=== PATIENT | male | born 1945 | race Two or more races ===

== ENCOUNTER → 2017-03-03 | Outpatient (REF) | payer MEDICARE | LOC: M SMT 16:56 | PROVIDERS: ATTEND Nurse Practitioner Women's Health | DX: R82.90 Unspecified abnormal findings in urine (principal) | CPT/HCPCS: 51798; 81001; 87088; 87186; G0463 ==

== ENCOUNTER → 2017-07-16 | Outpatient (REF) | payer MEDICARE | LOC: M LAB REF 17:08 | PROVIDERS: ATTEND Internal Medicine Nephrology | DX: N39.0 Urinary tract infection, site not specified (principal) ==

== ENCOUNTER → 2017-08-05 | Outpatient (REF) | payer MEDICARE ==
[~2017-08-05] MED LIST: ALLO100T PO; AMBI10TA PO; ASPI81TAEC PO; CARV12.5 PO; CARV25TA PO; FENO1CAP2 PO; FENO35TA PO; FLON1SPR; GABA-282 PO; K-TA10TA2 PO; PRAV80TA2 PO; ROCA0.25 PO; TORS20TA2 PO; WARF-18 PO; WARF4TAB51 PO; ZYLO300T4 PO
== END ==
LOC: M SMT 17:08
PROVIDERS: ATTEND Nurse Practitioner Women's Health
DX: N39.0 Urinary tract infection, site not specified (principal)
CPT/HCPCS: 51798; 81001; 87088; 87186; G0463

== ENCOUNTER → 2017-08-19 | Outpatient (REF) | payer MEDICARE | LOC: M SFHCCAPE 16:29 | PROVIDERS: ATTEND Physician Assistant | DX: L03.115 Cellulitis of right lower limb (principal) ==

== ENCOUNTER 2017-08-20 17:58 | Inpatient (IN) | payer MEDICARE ==
[~2017-08-20] VITALS: Ht 188 cm; Wt 139.5 kg
[2017-08-20] MEDS ORDERED: AMBI10TA PO (18:23)
[2017-08-20] MEDS ORDERED: CARV12.5 PO (18:23)
[2017-08-20] MEDS ORDERED: ZYLO300T4 PO (18:23)
[2017-08-20] MEDS ORDERED: PRAV80TA2 PO (18:23)
[2017-08-20] MEDS ORDERED: ROCA0.25 PO (18:23)
[2017-08-20] MEDS ORDERED: GABA-282 PO ×2 (18:23→21:56)
[2017-08-20] MEDS ORDERED: FENO35TA PO (18:23)
[2017-08-20] MEDS ORDERED: K-TA10TA2 PO (18:23)
[2017-08-20] MEDS ORDERED: WARF4TAB51 PO (18:23)
[2017-08-20] MEDS ORDERED: TORS20TA2 PO (18:23)
[2017-08-20 19:22] LABS: BASO % 0.2 % (0.0-1.0); EOS # 0.1 10^3/uL (0.0-0.50); EOS % 0.6 % (0.0-3.0); IMMATURE GRANULOCYTE % 0.8 % (0-0); LYMPH # 0.8 10^3/uL (1.5-4.5); LYMPH % 6.3 % (24.0-44.0); MEAN CORPUSCULAR HEMOGLOBIN 24.4 pg (27.0-33.0); MEAN CORPUSCULAR HGB CONC 29.8 g/dl (32.0-36.5); MEAN CORPUSCULAR VOLUME 81.9 fl (80.0-96.0); MONO % 8.1 % (0.0-5.0); NEUTROPHILS # 10.8 10^3/uL (1.8-7.7); PLATELET COUNT, AUTOMATED 212 10^3/uL (150-450); RED CELL DISTRIBUTION WIDTH 20.7 % (11.5-14.5); WHITE BLOOD COUNT 12.8 10^3/uL (4.0-10.0)
[2017-08-20 19:44] LABS: INR 2.56
--- NOTE | 2017-08-20 19:50 | REP ---
HISTORY: Dyspnea. COMPARISON: 09/03/2015 The technique utilized in obtaining the radiograph has magnified the cardiac silhouette and accentuated the interstitial markings. There is global cardiomegaly. There is pulmonary vascular redistribution and a haziness seen throughout the pulmonary vascularity. There are no patchy opacities or pleural effusions. IMPRESSION: CHF. Signed by Marcelo High DO 08/21/2017 02:10 P
[2017-08-20 19:52] LABS: CALCIUM LEVEL 8.7 MG/DL (8.8-10.2); CREATININE FOR GFR 2.9 MG/DL (0.70-1.30); GLOMERULAR FILTRATION RATE 22.8 (>42); POTASSIUM SERUM 3.8 MEQ/L (3.5-5.1)
[2017-08-20 19:59] LABS: ALBUMIN 3.2 GM/DL (3.2-5.2); ALBUMIN/GLOBULIN RATIO 0.91 (1.00-1.93); BILIRUBIN,TOTAL 2.4 MG/DL (0.2-1.0); TOTAL PROTEIN 6.7 GM/DL (6.4-8.2)
--- NOTE | 2017-08-20 20:10 | REPUSA ---
CLINICAL HISTORY: Shortness of breath. TECHNIQUE: Multiple axial, coronal, sagittal CT images were obtained through chest without IV contra st material. COMMENTS: There is no evidence of pleural or parenchymal-based mass. Small right pleural effusion and no left pleural effusion is present. There is no evidence of hilar or mediastinal lymphadenopathy. The hear t is severely enlarged. Pulmonary venous congestive changes are present. Note is made of diffusely increased interstitial lungs markings with peripheral and bibasilar predomi nance compatible with pulmonary fibrosis. Few calcified nodules are present in the right lower lobe, the largest measures 4 mm. Mild scattered upper lobe predominant centrilobular emphysema is seen. Several small calcified granulomas are present in the left lower lobe measuring up to 2.5 mm. The visualized portions of the liver are of uniform attenuation without mass or defect. There is no intra or extrahepatic biliary ductal dilatation. The spleen is unremarkable. The visualized pancrea s is of normal contour and attenuation characteristics. There is no evidence of adrenal mass. The v isualized portions of the kidneys present no abnormalities. The bony structures are free of lytic or blastic lesions. Multilevel degenerative changes are seen i nvolving the thoracic spine. Scattered calcifications are seen involving the aorta and visualized james or branches compatible with atherosclerosis. IMPRESSION: 1. Cardiomegaly. 2. CHF. 3. Right pleural effusion. 4. Sequelae of prior granulomatous disease. 5. Evidence of pulmonary fibrosis. 6. Mild scattered emphysema.
--- NOTE | 2017-08-20 20:21 | ECGEPIP ---
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
[2017-08-20] MEDS ORDERED: FUROSEMIDE 40 MG/4 ML VIAL (J1940) IV ONE (20:45)
[2017-08-20] MEDS: PRAVASTATIN 20 MG TAB PO SCH (21:00)
[2017-08-20] MEDS ORDERED: WARF-18 PO (21:56)
[2017-08-20] MEDS ORDERED: ASPI81TAEC PO (21:56)
[2017-08-20] MEDS ORDERED: CARV25TA PO (21:56)
[2017-08-20] MEDS ORDERED: ALLO100T PO (21:56)
[2017-08-20] MEDS ORDERED: FENO1CAP2 PO (21:56)
[2017-08-20] MEDS ORDERED: FLON1SPR (21:56)
[2017-08-20] MEDS ORDERED: ACETAMINOPHEN TAB 650MG DOSE (2X325MG) PO PRN (22:00)
[2017-08-20] MEDS ORDERED: GABAPENTIN 300 MG CAP PO PRN (22:15)
[2017-08-20] MEDS ORDERED: FLUTICASONE PROP 0.05% NASAL SPRAY 16 GM (FLONASE) PRN (22:15)
[2017-08-20] MEDS: CARVedilol 12.5 MG TAB PO SCH (22:42)
[2017-08-20] MEDS: zolPIDEM TARTRATE 5 MG TAB PO SCH (22:42)
[2017-08-20] MEDS: ASPIRIN 81 MG ENTERIC TAB PO SCH (22:43)
[2017-08-20] MEDS: GABAPENTIN 300 MG CAP PO SCH (22:43)
--- NOTE | 2017-08-20 23:36 | HPE ---
DATE OF ADMISSION: 08/20/2017 ATTENDING PHYSICIAN: Dr. Candido Higgins PHARMACEUTICAL OFFICER: Dr. Perez DOUGH BRAKER: Dr. Poole CHIEF COMPLAINT: Worsening swelling of bilateral lower extremities. HISTORY OF THE PRESENT ILLNESS: The patient is a 72-year-old white male with multiple chronic medical conditions, including congestive heart failure (CHF) and chronic kidney disease stage IV, presented to the emergency room (ER) for evaluation of above complaints. The history is provided by himself; however, he is a poor historian. 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 Perez. He was taking torsemide 40 mg twice a day at home. Also, he has chronic kidney disease stage IV and he followed up with Dr. Poole. He stated recently he was treated with 10 days antibiotics, but he could not remember the name of antibiotic ordered for possible urinary tract infection by urologist. In the last couple of days, he said he has more swelling in his bilateral lower extremities, particularly there is some fluid that came out from his right lower extremity and that is why he went to urgent care and then transferred here to the ER for further evaluation. In the ER, he was found to have fluid overload, and he was given intravenous (IV) Lasix in the ER. Meanwhile, medicine service called for admission. Otherwise, no other complaints. REVIEW OF SYSTEMS: Denies fever. No chills. No headache. No blurred vision. No shortness of breath. No coughing. No chest pain. No abdominal pain. No diarrhea. No constipation. No dysuria. No weakness in the arms or lower extremities but general weakness. All other systems were reviewed but negative. PAST MEDICAL HISTORY: 1. Hypertension. 2. Chronic kidney disease stage IV. 3. Chronic atrial fibrillation, on Coumadin. 4. Congestive heart failure, ejection fraction (EF) is around 35%. 5. Type 2 diabetes, which is diet controlled. PAST SURGICAL HISTORY: Stone was removed from his bladder and prostate cancer with radiation therapy. ALLERGIES: No known drug allergies. SOCIAL HISTORY: He has remote tobacco use, quit 40 years. No alcohol abuse. No illicit drug abuse. He is living with . He is a F[employer]. FAMILY HISTORY: Positive for gastric cancer. MEDICATIONS: Reviewed including: - torsemide 40 mg twice a day - Coumadin 2 mg daily - potassium chloride 10 mEq daily - Neurontin 300 mg three times a day - pravastatin 80 mg by mouth daily - Coreg 12.5 mg by mouth daily - allopurinol 300 mg by mouth daily PHYSICAL EXAMINATION: VITAL SIGNS: Temperature 97.5, heart rate is 113, respirations 22, blood pressure 110/57, oxygen saturation is 95% on 2 liters of oxygen. GENERAL: He is awake, alert, oriented times three. He is not in acute distress. HEENT: Atraumatic. Pupils equal, round, reactive to light. Extraocular muscles intact. No jaundice. Ears, nose and throat are normal. NECK: No jugular venous distention (JVD), no bruits. LUNGS: Clear. No wheezing, no crackles. HEART; S1, S2, mild tachycardia, irregular but no murmur. ABDOMEN: Soft. Bowel sounds positive, nontender. LOWER EXTREMITIES: He has +2 edema in his bilateral lower extremities. NEUROLOGIC: Nonfocal. SKIN: No rash. PSYCHOLOGIC: No acute psychosis. DIAGNOSTIC AND LAB STUDIES: Include the following: CBC and differential showed WBC 12.8, hemoglobin and hematocrit 12 over 40, platelets 212. Sodium 139, potassium 3.8, chloride 104, bicarbonate 25, BUN 100, creatinine 2.9, glucose 107, bilirubin is 2.4 but liver enzymes normal. Troponin negative. BNP is up to 5297 and INR was 2.5. Chest CT as well as chest x-ray were reviewed, not significant. IMPRESSION: 1. Acute on chronic systolic congestive heart failure. 2. Chronic kidney disease stage IV. 3. Chronic atrial fibrillation. 4. Type 2 diabetes. 5. Hypertension. PLAN: He will be admitted to the progressive care unit (PCU). It seems like he has fluid overload, so I will treat him with IV Lasix 60 mg IV twice a day. Will closely monitor his electrolytes as well as his kidney function. I will schedule a 2D echocardiogram and will consult Dr. Perez. He has abnormal urinalysis, but I do not think he has a urinary tract infection, probably related to his prostate cancer plus he was treated recently with antibiotics. Due to mildly increased creatinine from his baseline, I will schedule a renal ultrasound to rule out any obstruction. He is on Coumadin for atrial fibrillation, which is therapeutic, so he does not need actual deep vein thrombosis (DVT) prophylaxis. [facility]
[2017-08-21 06:45] LABS: INR 2.72
[2017-08-21 07:04] LABS: CALCIUM LEVEL 8.5 MG/DL (8.8-10.2); CREATININE FOR GFR 2.77 MG/DL (0.70-1.30); MAGNESIUM LEVEL 2.2 MG/DL (1.8-2.4); POTASSIUM SERUM 3.6 MEQ/L (3.5-5.1)
[2017-08-21 07:13] LABS: BASO % 0.4 % (0.0-1.0); EOS # 0.2 10^3/uL (0.0-0.50); EOS % 2.2 % (0.0-3.0); IMMATURE GRANULOCYTE % 0.6 % (0-0); LYMPH # 0.9 10^3/uL (1.5-4.5); MEAN CORPUSCULAR HEMOGLOBIN 24.7 pg (27.0-33.0); MEAN CORPUSCULAR HGB CONC 30.2 g/dl (32.0-36.5); MEAN CORPUSCULAR VOLUME 81.8 fl (80.0-96.0); MONO % 9.2 % (0.0-5.0); NEUTROPHILS # 8.7 10^3/uL (1.8-7.7); NEUTROPHILS % 79.6 % (36.0-66.0); PLATELET COUNT, AUTOMATED 214 10^3/uL (150-450); RED CELL DISTRIBUTION WIDTH 20.6 % (11.5-14.5); WHITE BLOOD COUNT 10.9 10^3/uL (4.0-10.0)
--- NOTE | 2017-08-21 07:31 | REP ---
Renal ultrasound: The right kidney measures 13.7 by 6.6 x 7.1 cm. The left kidney measures 2.7 by 4.8 by 5.7 cm. Renal cortical echogenicity is normal bilaterally. There is no hydronephrosis on the right on the left. There are multiple left renal cysts, largest measuring up to 4.1 cm. There are no right renal cysts. No solid masses. There are no calculi. Bladder ultrasound: The bladder is distended with 490 ml of fluid. No bladder wall polyps or masses are identified. The bladder is otherwise unremarkable. Impression: The kidneys at least 2 cm for in length and the right kidney. There are multiple left renal cysts. Otherwise, negative renal ultrasound. No Signed by Nader Etienne MD 08/21/2017 07:23 A
[2017-08-21] MEDS: CARVedilol 12.5 MG TAB PO SCH ×2 (09:00→20:29)
[2017-08-21] MEDS: FUROSEMIDE 100 MG/10 ML VIAL (J1940) IV SCH ×3 (09:36→21:00)
[2017-08-21] MEDS: CALCITRIOL 0.25 MCG CAP (S0169) PO SCH (09:36)
[2017-08-21] MEDS: SENOKOT S TAB PO SCH ×2 (09:37→20:30)
--- NOTE | 2017-08-21 16:01 | IPN ---
DATE: 08/21/2017 Patient seen and examined. Admitted overnight. Reported respirations much improved. Bilateral lower extremity swelling also much improved. With right lower extremity there is a ruptured blister with drainage. As per patient, has been going on for the past 5-6 days. Denies any chest pain, pressure, or discomfort. Denies any fevers or chills. No sick contacts. Lives at home with his . VITAL SIGNS: Temperature 98.3, pulse 76, respirations 18, blood pressure 138/63, pulse oximetry 96% on room air. LABORATORY DATA: WBC 10.9, hemoglobin and hematocrit 11.5/38.1, platelets 214. Chemistry: Sodium 142, potassium 3.6, chloride 105, bicarbonate 25, BUN 92, creatinine 2.77. PHYSICAL EXAMINATION: GENERAL: Patient alert and oriented times three, obese, in no acute distress. HEENT: Normocephalic, atraumatic. PULMONARY: Bilateral clear to auscultation. No wheezing, rales, or rhonchi. CARDIAC: 2/6 systolic murmur, regular, S1, S2. ABDOMEN: Soft, nontender, obese. EXTREMITIES: 1+ bilateral lower extremity edema, with venous stasis skin changes, right lower extremity, around the arias area with an ulcer with skin breakdown with purulent drainage. ASSESSMENT AND PLAN: This is a 72-year-old male patient with underlying medical history of congestive heart failure (CHF), with ejection fraction of 35%, chronic kidney disease (CKD) stage IV, baseline creatinine 2.6, chronic atrial fibrillation, on Coumadin, type 2 diabetes, diet controlled, hypertension, presented to the emergency room with worsening lower extremity swelling and also ulcer with purulent drainage. 1. Right lower extremity venous stasis ulcers. Case discussed with Dr. Greco. Physical therapy (PT), wound care has been consulted. Recommending venous ultrasound, standing, as per Dr. Greco with Vashe and Optifoam dressing daily and leg elevation. Continue diuresis as below. Followup with Dr. Greco as outpatient. Will make appointment for the patient upon discharge. 2. Bilateral lower extremity swelling, likely secondary to congestive heart failure (CHF) exacerbation with systolic dysfunction, ejection fraction (EF) of 35%. Diuresis. Cardiac enzymes. Telemetry monitoring. Followup kidney function. Dr. Perez has been consulted. Strict intake and output, daily weight. Continue statin, aspirin. 3. Atrial fibrillation. Continue beta blockers. Anticoagulation with Coumadin. Followup INR. 4. Dyslipidemia. Continue statin. 5. Diabetes. Diet controlled. Followup glucose. 6. Peripheral neuropathy. Continue Neurontin. 7. Hypertension. Monitor blood pressure. Continue Lasix and Coreg, adjust as needed. Followup electrolytes. 8. Deep venous thrombosis (DVT) prophylaxis. Patient on Coumadin for atrial fibrillation with therapeutic INR. DISPOSITION: Pending clinical improvement, wound care, and a cardiology consultation. Echocardiogram has also been ordered. Need outpatient followup with Dr. Greco.
[2017-08-21 16:05] VITALS: BP 102/62
--- NOTE | 2017-08-21 16:51 | REP ---
BILATERAL LOWER EXTREMITY DUPLEX DOPPLER VENOUS ULTRASOUND WITH EVALUATION FOR VENOUS REFLUX: Real-time compression and duplex Doppler interrogation of bilateral lower extremity deep venous systems is performed. Bilaterally, common femoral, superficial femoral and popliteal veins are fully compressible with transducer pressure and demonstrate normal spontaneous and phasic flow without evidence of deep venous thrombosis. There is focal dilatation of greater saphenous vein in the upper thigh as well as in the mid thigh on the left. Evaluation for venous reflux on the right demonstrates reflux in the common femoral vein. There is an anterior accessory greater saphenous vein present with reflux. There is no reflux in the proximal to mid greater saphenous vein which measures 6 and 7 mm in AP dimension respectively. There is reflux in the greater saphenous vein at the level of the knee with a duration of 3.6 seconds, AP diameter of that vessel is 6 mm. There is no reflux in any portion of the superficial femoral vein, popliteal vein or lesser saphenous vein which measures 4 mm. Anterior accessory greater saphenous vein communicates with the greater saphenous vein at the distal thigh. On the left, there is reflux in the common femoral vein. There is no evidence of an anterior accessory greater saphenous vein. There is reflux in the greater saphenous vein at the saphenofemoral junction with a duration of 2.1 seconds, AP diameter 12 mm. There is reflux in the greater saphenous vein at the midthigh with a duration of 2.7 seconds, AP diameter 9 mm, and there is reflux n the greater saphenous vein at the level of the knee with a duration of 2.5 seconds, AP diameter 11 mm. There is no reflux in any portion of the superficial femoral vein, popliteal vein or lesser saphenous vein. Signed by Nader Gamez MD 08/21/2017 05:04 P
[2017-08-21] MEDS: WARFARIN SOD 2.5 MG TAB PO SCH (17:52)
[2017-08-21 18:00] VITALS: BP 101/59
[2017-08-21] MEDS: zolPIDEM TARTRATE 5 MG TAB PO SCH (20:28)
[2017-08-21] MEDS: ASPIRIN 81 MG ENTERIC TAB PO SCH (20:29)
[2017-08-21] MEDS: GABAPENTIN 300 MG CAP PO SCH (20:29)
[2017-08-21] MEDS: PRAVASTATIN 20 MG TAB PO SCH (20:30)
[2017-08-21 22:00] VITALS: BP 106/63
[2017-08-22 02:00] VITALS: BP 95/54
--- NOTE | 2017-08-22 02:20 | CR ---
DATE OF CONSULTATION: 08/21/2017 REFERRING PHYSICIAN: Dr. Grande. REASON FOR CONSULTATION: Acute on chronic heart failure with preserved ejection fraction. Mr. Jose Hurtado is a pleasant 72-year-old man with coronary artery disease, prior silent old myocardial infarct, chronic atrial fibrillation, previous ischemic cardiomyopathy and now chronic systolic heart failure with preserved ejection fraction, systemic hypertension, abnormal ECG, frequent PVCs, hyperlipidemia, chronic kidney disease stage IV, nephrolithiasis, iron deficiency anemia, type 2 diabetes, obstructive sleep apnea (continuous positive airway pressure (CPAP) intolerant), and obesity. Patient presented to the hospital for admission yesterday (08/20/2017) after being seen by his primary care provider earlier that day when he was noted to have bilateral edema in both legs, venous stasis ulcer that was open and draining and a severely elevated brain natruretic peptide level. Patient reports he has had progressive buildup of edema in both legs for the past 2 months and also the past 2 months has had progressive worsening of exertional dyspnea to the point of exertional dyspnea walking around his garage. No orthopnea or paroxysmal nocturnal dyspnea (PND). No chest, neck, jaw or upper extremity pain, pressure, tightness or squeezing with or without exertion. No presyncope or syncope. No palpitations. No embolic events. No intermittent claudication. I shall summarize additional parts of his prior cardiac history. He was first discovered to have evidence of a sign of heart attack about 6 or 7 years ago. He subsequently underwent further evaluation with cardiac catheterization at [facility] in [place] and he was told he had " heart muscle." No percutaneous coronary intervention was indicated at that time. A stress echocardiogram from [facility] in [place], [place] 09/24/2002, reported poor cardiopulmonary fitness for age. Exercise induced regional wall motion abnormalities consistent with multivessel coronary artery disease (CAD). Resting left ventricular ejection fraction (LVEF) 50-55%. Moderate tricuspid regurgitation, estimated pulmonary systolic pressure 54 mmHg. No regional wall motion abnormalities at rest, but with exercise stress there was hypokinesis of the inferior basal segment, hypokinesis of the anterolateral wall and hypokinesis involving the mid and distal anteroseptal region. A diagnostic heart catheterization was recommended at that time. MUGA scan 01/03/2016 showed LVEF 46.4%. Akinesis of inferior basal region of the left ventricle with normal wall motion elsewhere. Mild reduction overall LV systolic function. Normal right ventricle systolic function. Holter monitor 11/09/2015, at which time patient was on carvedilol 25 mg twice a day, showed atrial fibrillation throughout with heart rate 39-82 beats per minute (BPM) with average heart rate of 60 BPM. Very frequent PVCs 27,556 (29.1%) including frequent runs with rates from 38-132 BPM and ranging in duration from 4-6 beats. No symptoms in the Holter diary. Echocardiogram Doppler 03/15/2015 from [facility] reported low normal LV systolic function with LVEF estimated to be 50%. Inferobasal segmented. Akinetic. No other regional wall motion abnormalities. Severe biatrial enlargement. Mild dilatation of the left ventricle and right ventricle. Aortic valve sclerosis. Mitral annular calcification. Moderate tricuspid regurgitation. Mild pulmonary hypertension. Mild mitral regurgitation. PAST MEDICAL HISTORY: 1. Chronic heart failure with preserved left ventricle systolic function. 2. 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 3. Chronic atrial fibrillation. 4. CAD. 5. Type 2 diabetes. 6. Systemic hypertension. 7. Hyperlipidemia. 8. Prostate cancer. 9. Hyperparathyroidism. 10. Ulcerative colitis. 11. Abnormal ECG, very frequent multiform PVCs. 12. Atherosclerosis of the abdominal aorta. 13. Chronic kidney disease stage IV followed by Dr. Kamilah Poole. 14. Nephrolithiasis. 15. Iron deficiency anemia. 16. Obstructive sleep apnea (intolerant of CPAP). 17. Obesity. 18. Previous removal of bladder stones. No known adverse drug reactions. MEDICATIONS: Prior to admission: - allopurinol 300 mg daily and additional allopurinol 100 mg daily (total dose 400 mg daily) - aspirin enteric coated 81 mg nightly - Calcitriol 0.25 mcg by mouth daily - carvedilol 12.5 mg twice a day - Flonase - gabapentin 300 mg nightly and additional dose as needed - potassium chloride 10 mEq twice a day - pravastatin 80 mg nightly - torsemide 40 mg twice a day - warfarin 2.5 mg daily or as directed - Ambien 10 mg nightly CURRENT MEDICATIONS: In hospital are as follows: - acetaminophen 650 mg every 4 hours as needed - aspirin 81 mg nightly - Calcitriol 0.25 mcg by mouth daily - carvedilol 12.5 mg twice a day - Flonase daily as needed - furosemide 60 mg IV twice a day - Neurontin 300 mg nightly and additional 300 mg nightly as needed for pain - pravastatin 80 mg nightly - Senokot-S one tablet twice a day - warfarin 2.5 mg daily - Ambien 10 mg nightly FAMILY HISTORY: Father from cancer. Mother from cancer. One sister had cancer. 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 Currently independent with all activities of daily living. Prior smoking history of one pack per day times 20 years which he quit over 30 years ago. No alcohol. Exercise limitations secondary to shortness of breath and fatigue and heaviness in the legs. REVIEW OF SYSTEMS: As per history of present illness (HPI) above. Wears glasses for reading. Decreased hearing. Does not wear hearing aids. Nonproductive cough. History of gastrointestinal (GI) ulcer. History of dysphagia. Chronic kidney disease. Bilateral leg swelling. Stasis dermatitis in both legs and recent weeping of venous ulcer right leg. Impaired balance. Numbness and tingling of the left hand and legs. No anxiety, depression or panic disorder. Cold intolerance. Iron deficiency anemia. All other 10-point review of systems questions otherwise negative other than HPI above. PHYSICAL EXAMINATION: Pleasant, obese, elderly man who appears chronologic age. . Height 74 inches, weight 134.1 kg, body mass index (BMI) 38.0. Temperature 96.8, pulse 75 (irregular), respiratory rate 20, blood pressure 101/59, oxygen saturation 95% on oxygen 3 liters per minute by nasal cannula. No dysmorphic features or deformities. Not in any respiratory or psychological distress. No conjunctival pallor, scleral icterus or xanthomas. Some dental fillings. Oral mucosa was moist and without pallor or cyanosis. Trachea midline. Thyroid not palpable. Jugular venous pulsations were at 8 cm. Respiratory expansion and effort was good. No crackles or wheezes appreciated. No left parasternal heaves, thrills or palpable heart sounds. No palpable apex beat. First heart sound variable. Second heart sound normal. No S3. No pericardial friction rub. Grade 1 systolic ejection murmur right second interspace without radiation. Carotids are normal in volume and contour and without bruits. Abdominal aorta not palpable due to abdominal obesity. Femoral pulses normal. Pedal pulses normal. 4 mm pitting edema present bilaterally with extensive stasis dermatitis. I did not unwrap the bandages that were covering the patient's right leg where he is reported to have some open venous stasis ulcers. No varicose veins. No clubbing, nailbed cyanosis or splinter hemorrhages. Bowel sounds positive. Abdomen soft, nontender with normal bowel sounds. No abdominal bruits. No hepatosplenomegaly or organomegaly. Liver span not measurable due to abdominal obesity. Stool for occult blood not presently indicated. Gait not fully tested because patient is under restricted activity. No kyphosis or scoliosis. Gross motor strength and tone appear normal. No fasciculations or tremors. Oriented to person, place and time. Mood and affect normal. I have reviewed the patient's electrocardiogram from 08/20/2017 at 1817 hours. It shows atrial fibrillation, ventricular rate 76 BPM, incomplete right bundle branch block, low precordial voltages, borderline low limb lead voltages, right axis deviation, nonspecific ST-T abnormalities. Poor R-wave progression. Cannot rule out old inferior wall myocardial infarct. I have independently visualized the patient's portable AP chest x-ray sitting obtained 08/20/2017 at 6:25 p.m. It shows cardiomegaly despite the portable technique. Right pleural effusion. Pulmonary vascular redistribution is present. Increased interstitial markings consistent with interstitial pulmonary edema bilaterally. Laboratory work 08/21/2017 was reviewed. Hemoglobin 11.5, hematocrit 38.1, WBC 10.9, platelets 214. PT/INR 2.72. Laboratory work 08/20/2017 showed sodium 139, potassium 3.8, chloride 104, CO2 25, BUN 100, creatinine 2.90, estimated GFR 22.8, glucose 107, CPK-MB 3.0, troponin I 0.04. Laboratory work 08/20/2017 also showed NT-proBNP 5297, albumin 3.2, TSH 3.850, total bilirubin elevated at 2.4 and direct bilirubin elevated at 1.0. Laboratory work 08/21/2017 was reviewed: Sodium 142, potassium 3.6, chloride 105, CO2 25, BUN 92, creatinine 2.77, estimated GFR 24.0, magnesium 2.0, albumin 3.0. ASSESSMENT AND PLAN: 1. Acute on chronic diastolic heart failure. This is complicated by right heart failure with chronic stasis dermatitis and now open weeping venous stasis ulcer. At present, he is decompensated and has evidence of interstitial pulmonary edema. Further making matters worse is the presence of chronic kidney disease stage IV. Use of gabapentin and abdominal obesity and diabetes all likely contribute to the presence of bilateral lower extremity edema. I agree with intravenous (IV) furosemide. Continue carvedilol. Because of the degree of renal dysfunction, he is really not a candidate for angiotensin-converting enzyme inhibitor (ACEI) or ARB. Also for the same reason, he is not really a candidate to tolerate mineralocorticoid receptor antagonist. I will increase the dose of IV furosemide because he does not have a strong net negative fluid balance thus far today. 2. Coronary artery disease (CAD) (douglas vessel). History of old silent inferior wall myocardial infarct. Previous cardiac catheterization. I recommend continued medical therapy. Continue low-dose aspirin. Continue carvedilol. Not presently a candidate for ACEI or ARB because of advanced kidney disease. 3. Old inferior wall myocardial infarct. As per CAD category above. Stable. 4. Chronic atrial fibrillation. Heart rate controlled on carvedilol. Continue carvedilol and warfarin. Target international normalized ratio (INR) 2.5-3.0. 5. Systemic hypertension. Blood pressure controlled. Will follow with you. 6. Abnormal ECG. ECG as described above. 7. Frequent multiform PVCs. No sustained ventricular tachycardia. Asymptomatic. Stable. 8. Hyperlipidemia. Continue statin therapy. Recommend DASH diet. 9. Obesity. Associated CAD, hyperlipidemia, systemic hypertension, atrial fibrillation, chronic kidney disease, type 2 diabetes. Recommend DASH diet.
[2017-08-22 05:48] LABS: MEAN CORPUSCULAR HEMOGLOBIN 23.7 pg (27.0-33.0); MEAN CORPUSCULAR HGB CONC 29.2 g/dl (32.0-36.5); MEAN CORPUSCULAR VOLUME 81.3 fl (80.0-96.0); PLATELET COUNT, AUTOMATED 184 10^3/uL (150-450); WHITE BLOOD COUNT 11.2 10^3/uL (4.0-10.0)
[2017-08-22 05:56] LABS: INR 2.66
[2017-08-22 06:00] VITALS: BP 122/62
[2017-08-22 06:01] LABS: CALCIUM LEVEL 8.9 MG/DL (8.8-10.2); CREATININE FOR GFR 2.5 MG/DL (0.70-1.30); POTASSIUM SERUM 4.2 MEQ/L (3.5-5.1)
[2017-08-22] MEDS: CALCITRIOL 0.25 MCG CAP (S0169) PO SCH (08:43)
[2017-08-22] MEDS: CARVedilol 12.5 MG TAB PO SCH ×2 (08:43→21:16)
[2017-08-22] MEDS: FUROSEMIDE 100 MG/10 ML VIAL (J1940) IV SCH ×2 (08:43→21:15)
[2017-08-22] MEDS: SENOKOT S TAB PO SCH ×2 (08:43→21:16)
--- NOTE | 2017-08-22 09:02 | IPNPDOC ---
Text Note Date of Service The patient was seen on 08/22/17. NOTE Subjective: Patient seen and examined. Patient denies any new medical complaints. States his breathing is improving. He expressed concerns regarding his weeping right lower extremity edema. Objective: GENERAL: NAD, lying comfortably in bed HEENT: NC/AT, EOMI PULMONARY: CTA B/L CARDIAC: 2/6 systolic murmur, regular, +S1S2. ABDOMEN: Soft, NT, +BS, obese. EXTREMITIES: 1+ bilateral lower extremity edema, with venous stasis skin changes, right lower extremity, around the arias area with an ulcer with skin breakdown with purulent drainage. ASSESSMENT AND PLAN: This is a 72-year-old male patient with underlying medical history of congestive heart failure (CHF), with ejection fraction of 35%, chronic kidney disease (CKD) stage IV, baseline creatinine 2.6, chronic atrial fibrillation, on Coumadin, type 2 diabetes, diet controlled, hypertension, presented to the emergency room with worsening lower extremity swelling and also ulcer with purulent drainage. #RLE venous stasis ulcers - Case has been discussed with Dr. Greco. - PT wound care has been consulted - US negative for DVT - as per wound care - Vashe and Optifoam dressing daily and leg elevation - Continue diuresis as below - Followup with Dr. Greco as outpatient #Decompensated CHF - systolic dysfunction, ejection fraction (EF) of 35% - continue IV lasix - consider increasing dose - slightly positive fluid balance as per documentation, no change in documented weight - Telemetry monitoring. - Followup renal function - Follow as per cardiology - strict I'O's, daily weight - Continue statin, aspirin. #episode of NSVT - asymptomatic - VSS - check electrolytes - consider transfer to tele #Atrial fibrillation. Continue beta blockers. Anticoagulation with Coumadin. Followup INR. #Dyslipidemia. Continue statin. #Diabetes. Diet controlled. Followup glucose. #Peripheral neuropathy. Continue Neurontin. #Hypertension. Monitor blood pressure. Continue Lasix and Coreg, adjust as needed. Followup electrolytes. #Deep venous thrombosis (DVT) prophylaxis. Patient on Coumadin for atrial fibrillation with therapeutic INR. VS,Fishbone, I+O VS, Fishbone, I+O Laboratory Tests 08/22/17 05:08 Red Blood Count 4.93, Mean Corpuscular Volume 81.3, Mean Corpuscular Hemoglobin 23.7 L, Mean Corpuscular Hemoglobin Concent 29.2 L, Red Cell Distribution Width 21.0 H, Calcium Level 8.9 Vital Signs Date Time Temp Pulse Resp B/P (MAP) Pulse Ox O2 Delivery O2 Flow Rate FiO2 08/22/17 08:43 78 122/62 08/22/17 06:00 97.9 18 92 Nasal Cannula 3.0 RAMÓN BLANDON MD Aug 22, 2017 09:02
[2017-08-22 09:30] LABS: MAGNESIUM LEVEL 2.3 MG/DL (1.8-2.4)
[2017-08-22 10:00] VITALS: BP 102/58
[2017-08-22 14:00] VITALS: BP 110/67
[2017-08-22] MEDS: metOLazone 2.5 MG TAB PO ONE ×2 (16:09→18:32)
[2017-08-22] MEDS: WARFARIN SOD 2.5 MG TAB PO SCH (16:09)
[2017-08-22 18:00] VITALS: BP 120/69
[2017-08-22] MEDS: PRAVASTATIN 20 MG TAB PO SCH (21:15)
[2017-08-22] MEDS: zolPIDEM TARTRATE 5 MG TAB PO SCH (21:15)
[2017-08-22] MEDS: ASPIRIN 81 MG ENTERIC TAB PO SCH (21:15)
[2017-08-22] MEDS: GABAPENTIN 300 MG CAP PO SCH (21:16)
[2017-08-22 22:00] VITALS: BP 96/52
[2017-08-23] VITALS (7 sets, daily range): BP systolic 90–120; BP diastolic 54–68
[2017-08-23 06:14] LABS: MEAN CORPUSCULAR HEMOGLOBIN 24.2 pg (27.0-33.0); MEAN CORPUSCULAR HGB CONC 29.7 g/dl (32.0-36.5); MEAN CORPUSCULAR VOLUME 81.6 fl (80.0-96.0); PLATELET COUNT, AUTOMATED 179 10^3/uL (150-450); WHITE BLOOD COUNT 12.4 10^3/uL (4.0-10.0)
[2017-08-23 06:23] LABS: INR 2.27
[2017-08-23 06:33] LABS: CALCIUM LEVEL 8.5 MG/DL (8.8-10.2); CREATININE FOR GFR 2.43 MG/DL (0.70-1.30); GLOMERULAR FILTRATION RATE 27.9 (>42); POTASSIUM SERUM 3.4 MEQ/L (3.5-5.1)
--- NOTE | 2017-08-23 07:32 | ECHO ---
DATE OF PROCEDURE: 08/22/2017 REFERRING PHYSICIAN: Dr. Octavio Grande INDICATION: Heart failure unspecified, shortness of breath. HEIGHT: 74 inches WEIGHT: 295 pounds 2D MEASUREMENTS: Aortic root: 3.2 cm Proximal ascending aorta: 3.6 cm Left atrium: 4.4 cm Ventricular septum: 1.31 cm Posterior wall: 1.30 cm Left ventricle diastole: 5.2 cm Left ventricle systole: 3.2 cm Aortic annulus: 3.2 cm Right ventricle: 5.9 cm Inferior vena cava: 3.6 cm with marked reduction of respiratory variation. DOPPLER MEASUREMENTS: Aortic valve area: 1.52 cm squared Aortic stenosis dimensionless index: 0.36 Peak aortic valve velocity: 273 cm/s Aortic valve VTI: 58.1 cm Peak aortic valve gradient: 30 mmHg Mean aortic valve gradient: 18 mmHg LVOT velocity: 110 cm/s LVOT VTI: 21.2 cm Very mild mitral regurgitation. No mitral stenosis. Severe tricuspid regurgitation. Estimated right ventricle systolic pressure: 82 mmHg assuming a right atrial pressure of 20 mmHg. Mild pulmonic regurgitation. DESCRIPTION: Rhythm was atrial fibrillation with controlled ventricular response. This was a 2D, M-mode, color flow Doppler and pulse wave Doppler examination and included mitral annular tissue Doppler. No pericardial effusion. Image quality was moderately technically difficult. CONCLUSIONS: 1. Mild concentric left ventricle hypertrophy. Normal regional left ventricular (LV) wall motion and wall thickening. Normal LV systolic function. Left ventricular ejection fraction (LVEF) was 65% by visual estimate. Partial flattening of the interventricular septum in keeping with both pressure and volume overload of the right ventricle. 2. Suggestive of very severe elevation of estimated right ventricle systolic pressure, at least 82 mmHg. Severe tricuspid regurgitation. Moderate right ventricle dilatation. Right ventricle hypertrophy with prominence of the moderator band of the right ventricle. Normal right ventricular (RV) systolic function. Severe right atrial dilatation. 3. Inferior vena cava plethora with marked reduction of respiratory variation suggestive of elevated central venous pressure of at least 20 mmHg. 4. Extensive focal thickening and focal calcific deposits of a 3-cusp aortic valve with mild reduction in aortic cusp mobility. Mild aortic stenosis. No aortic regurgitation. 5. Moderate mitral annular calcification. Very mild mitral valve regurgitation. No mitral stenosis. 6. Mild left atrial dilatation. Copy To: Dr. Octavio Rogers, Nurse Practitioner Dr. Basilio Perez
[2017-08-23] MEDS: CALCITRIOL 0.25 MCG CAP (S0169) PO SCH (08:33)
[2017-08-23] MEDS: SENOKOT S TAB PO SCH ×3 (08:34→20:23)
[2017-08-23] MEDS: FUROSEMIDE 100 MG/10 ML VIAL (J1940) IV SCH (08:54)
--- NOTE | 2017-08-23 09:59 | IPNPDOC ---
Text Note Date of Service The patient was seen on 08/23/17. NOTE Subjective: Patient seen and examined. Patient denies any new medical complaints. States his breathing is improving. He is having cravings for cigarettes but states they are manageable. Objective: GENERAL: NAD, lying comfortably in bed HEENT: NC/AT, EOMI PULMONARY: CTA B/L CARDIAC: 2/6 systolic murmur, regular, +S1S2. ABDOMEN: Soft, NT, +BS, obese. EXTREMITIES: 1+ bilateral lower extremity edema, with venous stasis skin changes, right lower extremity, around the arias area with an ulcer with skin breakdown with purulent drainage. ASSESSMENT AND PLAN: This is a 72-year-old male patient with underlying medical history of congestive heart failure (CHF), with ejection fraction of 35%, chronic kidney disease (CKD) stage IV, baseline creatinine 2.6, chronic atrial fibrillation, on Coumadin, type 2 diabetes, diet controlled, hypertension, presented to the emergency room with worsening lower extremity swelling and also ulcer with purulent drainage. #RLE venous stasis ulcers - Case has been discussed with Dr. Greco. - PT wound care has been consulted - US negative for DVT - as per wound care - Vashe and Optifoam dressing daily and leg elevation - Continue diuresis as below - Followup with Dr. Greco as outpatient #Decompensated CHF - systolic dysfunction, ejection fraction (EF) of 35% - continue IV lasix - received metolazone x 1 - Telemetry monitoring. - Followup renal function - Follow as per cardiology - assistance appreciated - strict I'O's, daily weight - Continue statin, aspirin. #Atrial fibrillation. Continue beta blockers. Anticoagulation with Coumadin. Followup INR. #Dyslipidemia. Continue statin. #Diabetes. Diet controlled. Followup glucose. #Peripheral neuropathy. Continue Neurontin. #Hypertension - pressures have been on the low side - likely discontinue coreg - discuss further with cardiology #Deep venous thrombosis (DVT) prophylaxis. Patient on Coumadin for atrial fibrillation with therapeutic INR. VS,Fishbone, I+O VS, Fishbone, I+O Laboratory Tests 08/23/17 05:52 Red Blood Count 4.79, Mean Corpuscular Volume 81.6, Mean Corpuscular Hemoglobin 24.2 L, Mean Corpuscular Hemoglobin Concent 29.7 L, Red Cell Distribution Width 21.0 H, Calcium Level 8.5 L Vital Signs Date Time Temp Pulse Resp B/P (MAP) Pulse Ox O2 Delivery O2 Flow Rate FiO2 08/23/17 08:56 90/60 (70) 08/23/17 06:00 98.0 80 17 91 Nasal Cannula 3.0 RAMÓN BLANDON MD Aug 23, 2017 09:59
[2017-08-23] MEDS: WARFARIN SOD 2.5 MG TAB PO SCH (16:13)
[2017-08-23] MEDS: BISOPROLOL FUM 2.5 MG PER 1/2TAB PO SCH (16:17)
[2017-08-23] MEDS ORDERED: POTASSIUM CHLORIDE 10 MEQ SR TABLET PO ONE (19:45)
[2017-08-23] MEDS: FUROSEMIDE 40 MG/4 ML VIAL (J1940) IV SCH (20:20)
[2017-08-23] MEDS: ASPIRIN 81 MG ENTERIC TAB PO SCH (20:20)
[2017-08-23] MEDS: zolPIDEM TARTRATE 5 MG TAB PO SCH (20:20)
[2017-08-23] MEDS: PRAVASTATIN 20 MG TAB PO SCH (20:21)
[2017-08-23] MEDS: GABAPENTIN 300 MG CAP PO SCH (20:21)
[2017-08-24] VITALS (8 sets, daily range): BP systolic 113–133; BP diastolic 55–73
[2017-08-24 05:55] LABS: MEAN CORPUSCULAR HEMOGLOBIN 24.3 pg (27.0-33.0); MEAN CORPUSCULAR HGB CONC 30.1 g/dl (32.0-36.5); MEAN CORPUSCULAR VOLUME 80.9 fl (80.0-96.0); PLATELET COUNT, AUTOMATED 203 10^3/uL (150-450); WHITE BLOOD COUNT 12.8 10^3/uL (4.0-10.0)
[2017-08-24 06:09] LABS: CALCIUM LEVEL 9.3 MG/DL (8.8-10.2); CREATININE FOR GFR 2.35 MG/DL (0.70-1.30); POTASSIUM SERUM 3.3 MEQ/L (3.5-5.1)
[2017-08-24 07:18] LABS: MAGNESIUM LEVEL 2.1 MG/DL (1.8-2.4)
[2017-08-24] MEDS: BISOPROLOL FUM 2.5 MG PER 1/2TAB PO SCH (09:44)
[2017-08-24] MEDS: FUROSEMIDE 40 MG/4 ML VIAL (J1940) IV SCH ×2 (09:44→22:43)
[2017-08-24] MEDS: CALCITRIOL 0.25 MCG CAP (S0169) PO SCH (09:45)
[2017-08-24] MEDS: SENOKOT S TAB PO SCH ×2 (09:45→22:15)
--- NOTE | 2017-08-24 11:01 | IPNPDOC ---
Text Note Date of Service The patient was seen on 08/24/17. NOTE Subjective: Patient seen and examined. Patient denies any new medical complaints. Continues to feel better. Objective: GENERAL: NAD, lying comfortably in bed HEENT: NC/AT, EOMI PULMONARY: CTA B/L CARDIAC: 2-3/6 systolic murmur, regular, +S1S2. ABDOMEN: Soft, NT, +BS, obese. EXTREMITIES: 1+ bilateral lower extremity edema, with venous stasis skin changes, right lower extremity, around the arias area with an ulcer with skin breakdown with purulent drainage. ASSESSMENT AND PLAN: This is a 72-year-old male patient with underlying medical history of congestive heart failure (CHF), with ejection fraction of 35%, chronic kidney disease (CKD) stage IV, baseline creatinine 2.6, chronic atrial fibrillation, on Coumadin, type 2 diabetes, diet controlled, hypertension, presented to the emergency room with worsening lower extremity swelling and also ulcer with purulent drainage. #RLE venous stasis ulcers - Case has been discussed with Dr. Greco. - PT wound care has been consulted - US negative for DVT - as per wound care - Vashe and Optifoam dressing daily and leg elevation - Continue diuresis as below - Followup with Dr. Greco as outpatient #Decompensated CHF - systolic dysfunction, ejection fraction (EF) of 35% - continue IV lasix - dosage increased - received metolazone x 1 - Telemetry monitoring. - Followup renal function - Follow as per cardiology - assistance appreciated - strict I'O's, daily weight - Continue statin, aspirin. #Atrial fibrillation - Continue zebeta - Anticoagulation with Coumadin - Followup INR. #Dyslipidemia. Continue statin. #Diabetes. Diet controlled. Followup glucose. #Peripheral neuropathy. Continue Neurontin. #Hypertension - pressures improved - coreg was transitioned to zebeta #Deep venous thrombosis (DVT) prophylaxis. Patient on Coumadin for atrial fibrillation with therapeutic INR. VS,Fishbone, I+O VS, Fishbone, I+O Laboratory Tests 08/24/17 05:30 Red Blood Count 4.97, Mean Corpuscular Volume 80.9, Mean Corpuscular Hemoglobin 24.3 L, Mean Corpuscular Hemoglobin Concent 30.1 L, Red Cell Distribution Width 21.0 H, Calcium Level 9.3 Vital Signs Date Time Temp Pulse Resp B/P (MAP) Pulse Ox O2 Delivery O2 Flow Rate FiO2 08/24/17 09:44 81 116/55 08/24/17 06:00 97.4 18 94 Nasal Cannula 3.0 RAMÓN BLANDON MD Aug 24, 2017 11:01
[2017-08-24] MEDS: WARFARIN SOD 2.5 MG TAB PO SCH (17:01)
[2017-08-24] MEDS: zolPIDEM TARTRATE 5 MG TAB PO SCH (22:15)
[2017-08-24] MEDS: ASPIRIN 81 MG ENTERIC TAB PO SCH (22:15)
[2017-08-24] MEDS: PRAVASTATIN 20 MG TAB PO SCH (22:15)
[2017-08-24] MEDS: GABAPENTIN 300 MG CAP PO SCH (22:16)
[2017-08-25] VITALS (7 sets, daily range): BP systolic 100–129; BP diastolic 56–80
[2017-08-25 06:41] LABS: MEAN CORPUSCULAR HEMOGLOBIN 24.1 pg (27.0-33.0); MEAN CORPUSCULAR HGB CONC 30.1 g/dl (32.0-36.5); MEAN CORPUSCULAR VOLUME 80.3 fl (80.0-96.0); PLATELET COUNT, AUTOMATED 177 10^3/uL (150-450); RED CELL DISTRIBUTION WIDTH 21.4 % (11.5-14.5); WHITE BLOOD COUNT 13.9 10^3/uL (4.0-10.0)
[2017-08-25 06:52] LABS: CALCIUM LEVEL 8.8 MG/DL (8.8-10.2); CREATININE FOR GFR 2.29 MG/DL (0.70-1.30); GLOMERULAR FILTRATION RATE 29.9 (>42)
[2017-08-25 07:06] LABS: POTASSIUM SERUM 2.7 MEQ/L (3.5-5.1)
[2017-08-25] MEDS ORDERED: POTASSIUM CHLORIDE 10 MEQ SR TABLET PO ONE ×3 (07:45→22:00)
[2017-08-25] MEDS: BISOPROLOL FUM 2.5 MG PER 1/2TAB PO SCH (08:05)
[2017-08-25] MEDS: CALCITRIOL 0.25 MCG CAP (S0169) PO SCH (08:06)
[2017-08-25] MEDS: SODIUM CHLORIDE NASAL 0.65% SPRAY BTL (OCEAN) SCH ×2 (08:06→20:35)
[2017-08-25] MEDS: SENOKOT S TAB PO SCH ×2 (08:08→20:35)
[2017-08-25] MEDS: KCL 10MEQ IN 100ML SWI (KRUN) 10 MEQ in APPROPRIATE DILUENT 1 EA IV SCH ×6 (08:34→12:40)
[2017-08-25 08:53] LABS: INR 1.82
[2017-08-25] MEDS: FUROSEMIDE 40 MG/4 ML VIAL (J1940) IV SCH (08:53)
--- NOTE | 2017-08-25 13:39 | IPN ---
DATE OF VISIT: 08/25/2017 SUBJECTIVE: Patient is seen in the room today. Patient still requires oxygen to maintain satisfactory oxygen saturation. Per patient, patient does not use any oxygen at home. I had a chance to talk to patient's . Per family member, patient has not been compliant with fluid restriction at home prior to the hospitalization. All of her questions are answered. OBJECTIVE: VITAL SIGNS: Temperature 98, pulse is 77, respirations 18, blood pressure 116/78, pulse oximetry is 93% with 3 liter nasal cannula. GENERAL: No sign of acute distress. Alert and oriented times three. HEENT: Normocephalic, atraumatic. CARDIOVASCULAR: Irregularly irregular. Positive S1, S2. Positive systolic murmur. LUNGS: Positive crackles in the lung bilateral base. No wheezes. ABDOMEN: Soft, nontender, nondistended, morbidly obese. EXTREMITIES: 1+ edema in lower extremities. Positive venous stasis skin changes. There is also oozing of the lower extremity most significant right anterior arias cover with a foam dressing. There is fluid noted on the dressing. LABORATORY DATA: WBC is 15.9, hemoglobin 11.9, hematocrit 39.6, platelet count is 177. Sodium is 140, potassium 2.7, chloride is 102, bicarbonate 34. BUN is 105, creatinine is 2.29. GFR is 29.9. Fasting glucose is 91. Calcium is 8.8. ASSESSMENT AND PLAN: 1. Systolic congestive heart failure exacerbation. Ejection fraction (EF) is 35%. Currently, patient is on intravenous (IV) Lasix. Cardiology, Dr. Perez has been assisting on the case. Appreciate his input. Patient is currently on fluid restriction. Continue volume input and output and daily weight. 2. Right lower extremity venous stasis ulcers. The case was discussed with Dr. Greco previously. Wound care is also consulted. Patient currently using Vashe and Optifoam dressing for the drainage. Patient is also recommended to continue leg elevation. Currently, patient is on diuretics. 3. Atrial fibrillation. On Zebeta. Patient has anticoagulation with Coumadin. Today, patient had subtherapeutic international normalized ratio (INR). Patient has been taking warfarin 2.5 mg by mouth daily. We will reverse the warfarin dose. Continue to follow with INR. 4. Acute on chronic kidney injury. Patient has been receiving diuresis. Patient has a good urine output in the last 48 hours. Renal function is improving. Continue to monitor. 5. Hypokalemia. Most likely secondary to diuretic use. Patient will receive potassium supplement. 6. Dyslipidemia. On pravastatin. 7. Hypertension. Blood pressure in the satisfactory range. Patient is encouraged to take his Zebeta. Currently, patient is on IV Lasix. 8. Peripheral neuropathy. On Neurontin. 9. Diabetes. Diet controlled. Fasting glucose in the morning has been in the normal range. 10. Deep venous thrombosis (DVT) prophylaxis. Patient is currently on Coumadin for his atrial fibrillation (AFib).
[2017-08-25] MEDS ORDERED: WARFARIN SOD 3 MG TAB PO SCH (17:00)
[2017-08-25] MEDS: zolPIDEM TARTRATE 5 MG TAB PO SCH (20:34)
[2017-08-25] MEDS: GABAPENTIN 300 MG CAP PO SCH (20:35)
[2017-08-25] MEDS: ASPIRIN 81 MG ENTERIC TAB PO SCH (20:35)
[2017-08-25] MEDS: PRAVASTATIN 20 MG TAB PO SCH (20:35)
[2017-08-25 22:16] LABS: CALCIUM LEVEL 8.8 MG/DL (8.8-10.2); CREATININE FOR GFR 2.25 MG/DL (0.70-1.30); GLOMERULAR FILTRATION RATE 30.5 (>42); POTASSIUM SERUM 3.3 MEQ/L (3.5-5.1)
[2017-08-26] VITALS (7 sets, daily range): BP systolic 105–137; BP diastolic 59–83
[2017-08-26] MEDS ORDERED: POTASSIUM CHLORIDE 10 MEQ SR TABLET PO ONE (03:15)
[2017-08-26 06:58] LABS: MEAN CORPUSCULAR HEMOGLOBIN 23.9 pg (27.0-33.0); MEAN CORPUSCULAR HGB CONC 29.9 g/dl (32.0-36.5); MEAN CORPUSCULAR VOLUME 79.9 fl (80.0-96.0); PLATELET COUNT, AUTOMATED 242 10^3/uL (150-450); RED CELL DISTRIBUTION WIDTH 21.8 % (11.5-14.5)
[2017-08-26 07:03] LABS: CALCIUM LEVEL 8.5 MG/DL (8.8-10.2); CREATININE FOR GFR 2.23 MG/DL (0.70-1.30); GLOMERULAR FILTRATION RATE 30.8 (>42); POTASSIUM SERUM 3.3 MEQ/L (3.5-5.1)
[2017-08-26 07:08] LABS: INR 1.81
[2017-08-26] MEDS: KCL 10MEQ IN 100ML SWI (KRUN) 10 MEQ in APPROPRIATE DILUENT 1 EA IV SCH ×6 (08:03→12:42)
[2017-08-26] MEDS: CALCITRIOL 0.25 MCG CAP (S0169) PO SCH (08:04)
[2017-08-26] MEDS: SENOKOT S TAB PO SCH ×2 (08:04→20:51)
[2017-08-26] MEDS: POTASSIUM CHLORIDE 10 MEQ SR TABLET PO SCH (08:04)
[2017-08-26] MEDS: SODIUM CHLORIDE NASAL 0.65% SPRAY BTL (OCEAN) SCH ×2 (08:04→20:51)
--- NOTE | 2017-08-26 08:06 | IPN ---
DATE: 08/20/2017 Cardiology Progress Note SUBJECTIVE: The patient has been walking short distances in the [place]. Continues to be limited by shortness of breath today. Today he has had some lightheadedness and visual disturbance, but has not fallen. Remains free of any chest discomfort. No awareness of his heart action. He is happy that his lower leg swelling is less. OBJECTIVE: Obese barrel-chested elderly male currently lying comfortably with the head of bed elevated 20 degrees. No apparent cyanosis centrally on supplemental oxygen by nasal prongs at 3 liters per minute. Heart rate 76 bpm and irregular, blood pressure 90/50 supine, 95/50 standing, respiratory rate 18 per minute, O2 saturation 96%. Weight today 296 pounds, BMI 38. Curiously this weight is the same as that he had on admission. Despite a recorded negative fluid balance here in hospital of 5 liters (this should be at least a 12-pound weight loss). Trachea is midline. Neck veins remain approximately 10 cm above the sternal angle. Increased anteroposterior chest diameter with bibasilar inspiratory rales. No expiratory rhonchi. Apical impulse not palpable. Heart sounds are distant. Has a variable systolic ejection murmur related to his echocardiographically documented mild aortic stenosis. Abdomen remains protuberant but soft. Could not rule out shifting dullness. Continues to have thickened somewhat discolored skin both lower legs related to chronic dependent edema. Still has at least 1 mm pitting edema one third up both sides size. His legs are currently not weeping. Continues to wear a bandage on his right lower leg. 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 Continues to have isolated PVCs and ventricular triplets but no more sustained a ventricular tachyarrhythmia. I reviewed his chest CT scan from August 20, 2017 and this shows a moderately dilated left atrium not mildly dilated, suspected from his echocardiogram his left ventricle was upper limits of normal in size. Right heart chamber sizes were at least moderately to moderately severely dilated as was his inferior vena cava and pulmonary trunk in keeping with severe pulmonary hypertension and right heart failure. LABORATORY DATA: Hemoglobin 11.9 and this has been essentially stable since his admission, white blood cell count is mildly elevated at 13.9 thousand up from 10.9 on admission. Platelet count remains normal. PT / INR this morning was 21.7/1.8, electrolytes this morning show significant hypokalemia with potassium at 2.7 and bicarb of 34 with BUN up to 105 and creatinine 2.3 despite his hypokalemia and metabolic alkalosis. His primary service did not discontinue his IV Lasix?? IMPRESSION/PLAN: 1. Hypokalemia / metabolic alkalosis: Induced by his aggressive parenteral diuretic therapy and insufficient potassium chloride supplementation. His IV Lasix has been discontinued and he will receive a total of 120 mEq of KCl by mouth. His chemistry will be monitored closely and additional potassium chloride will be administered as necessary. 2. Heart failure (diastolic / acute on chronic): Based on his observed positional lightheadedness and blood pressure readings, he has reached his effective dry weight despite obvious ongoing signs of right heart failure. His azotemia is reflecting the same. As mentioned above his diuretic therapy will be at least temporarily withheld and blood pressure and renal function will be monitored. Based on his left ventricular diastolic dysfunction and soft blood pressure. His Zebeta beta-luis therapy will also be discontinued. 3. Cor pulmonale / right heart failure: His severe pulmonary hypertension and right ventricular dysfunction prompted by his chronic obesity and obstructive sleep apnea are chronic non fixable problems and determined his poor anticipated prognosis. Attempts to decrease his central venous pressure and reduced systemic edema will not be tolerated by his right ventricle. Reducing the prime to his right ventricle at this point his the cause of his hypotension and azotemia. I have discussed the possibility of a retrial of C-PAP therapy and the patient is quite reluctant. He is willing to at least where supplemental oxygen nocturnally. I have written an order to check his O2 saturation with ambulation to see whether this drops. Should this be the case he should be wearing continuous supplemental oxygen. 4. Atrial fibrillation (chronic): Clearly has some degree of conduction tissue disease with a controlled ventricular response on relatively low dose bisoprolol beta luis therapy. As mentioned above I have planned to discontinue this agent for the time being anyway because of his soft blood pressure. His right ventricular function may actually improve with a somewhat faster heart rate. Remains on oral anticoagulation. Fortunately no evidence of bleeding. Has been free of any symptom or sign of embolic phenomenon. 5. Coronary artery disease ([place] vessel): Interestingly, despite his abnormal EKG appearance recent echocardiogram showed his only a localized wall motion abnormality is likely related to his severe pulmonary hypertension and right ventricular pressure overload. No evidence of inferior or anterior infarction. At this point remains on oral anticoagulation and pravastatin. His bisoprolol therapy has been discontinued as mentioned, he is not a candidate for ROSA MARIA inhibition. 6. Hypertensive heart disease (benign with heart failure): Recent echocardiogram did show at least mild concentric left ventricle hypertrophy with preserved global resting left ventricular systolic function but evidence of an impairment of LV diastolic function. These findings are not likely to be improved by a beta luis therapy or ROSA MARIA inhibition. His current blood pressure remained soft as mentioned above this would be inappropriate with his current renal insufficiency. 7. Obesity (BMI 38): Problem of some chronicity and contributing to his effort intolerance, effort shortness of breath, left ventricular hypertrophy, his sleep disorder and pulmonary hypertension. Clearly significant weight loss would improve his quality in light of life. He has been encouraged to follow a low carbohydrate diet. A dietary consultation will be placed for precisely this. I will continue to follow him with you.
--- NOTE | 2017-08-26 13:23 | IPNPDOC ---
Text Note Date of Service The patient was seen on 08/26/17. NOTE SUBJECTIVE: Patient is seen in the room today. Patient had nose bleed this morning. Last midnight there was a 64 beats of tachycardia. Per patient he was using the restroom and walking back to his bed when the tachycardia occurred. OBJECTIVE: VITAL SIGNS: Listed below. GENERAL: No sign of acute distress. Alert and oriented times three. HEENT: Normocephalic, atraumatic. CARDIOVASCULAR: Irregularly irregular. Positive S1, S2. Positive systolic murmur. LUNGS: Positive crackles in the lung bilateral base. No wheezes. ABDOMEN: Soft, nontender, nondistended, morbidly obese. EXTREMITIES: 1+ edema in lower extremities. Positive venous stasis skin changes. There is also oozing of the lower extremity most significant right anterior arias cover with a foam dressing. There is fluid noted on the dressing. LABORATORY DATA: Listed below. ASSESSMENT AND PLAN: 1. Systolic congestive heart failure exacerbation. Ejection fraction (EF) is 35%. Cardiology has been assisting on the case. Appreciate his input. Patient is currently on fluid restriction. Continue volume input and output and daily weight. Lasix is discontinued. 2. Tachycardia. Strip is reviewed. It does not seem to be V tachy. Patient has severe hypokalemia. Continue to supplement through IV and PO. Lasix was discontinued. 3. Right lower extremity venous stasis ulcers. The case was discussed with Dr. Greco previously. Wound care is also consulted. Patient currently using Vashe and Optifoam dressing for the drainage. Patient is also recommended to continue leg elevation. 4. Atrial fibrillation. On Zebeta. Patient has anticoagulation with Coumadin. Continue to adjust warfarin dosage as needed. Continue to follow with INR. 5. Acute on chronic kidney injury. Patient has been receiving diuresis. Patient has a good urine output in the last 48 hours. Renal function is improving. Continue to monitor. 6. Hypokalemia. Most likely secondary to diuretic use. Patient will receive potassium supplement. 6. Dyslipidemia. On pravastatin. 7. Hypertension. Blood pressure in the satisfactory range. Patient is encouraged to take his Zebeta. 8. Peripheral neuropathy. On Neurontin. 9. Diabetes. Diet controlled. Fasting glucose in the morning has been in the normal range. 10. Deep venous thrombosis (DVT) prophylaxis. Patient is currently on Coumadin for his atrial fibrillation (AFib). VS,Fishbone, I+O VS, Fishbone, I+O Laboratory Tests 08/25/17 13:56 Calcium Level 8.8 08/26/17 00:58 08/26/17 05:51 Calcium Level 8.5 L, Red Blood Count 5.02, Mean Corpuscular Volume 79.9 L, Mean Corpuscular Hemoglobin 23.9 L, Mean Corpuscular Hemoglobin Concent 29.9 L, Red Cell Distribution Width 21.8 H Vital Signs Date Time Temp Pulse Resp B/P (MAP) Pulse Ox O2 Delivery O2 Flow Rate FiO2 08/26/17 11:31 Room Air 08/26/17 06:00 97.5 75 19 105/60 (75) 96 3.0 I&O- Last 24 Hours up to 6 AM 08/26/17 06:00 Intake Total 720 ml Output Total 3075 ml Balance -2355 ml MARY BECKER DO Aug 26, 2017 13:22
[2017-08-26] MEDS ORDERED: WARFARIN SOD 5 MG TAB PO ONE (17:00)
--- NOTE | 2017-08-26 20:09 | IPN ---
DATE: 08/26/2017 Cardiology Progress Note SUBJECTIVE: Patient has been up in his room ambulating without chest discomfort , improved effort tolerance with less shortness of breath and no dizziness. Has been unaware of his heart action. OBJECTIVE: Obese, barrel-chested elderly male currently lying comfortably with the head of bed elevated 30 degrees. Heart rate 84 bpm and irregular, blood pressure 182/60 supine, 196/58 sitting with legs dependent, respiratory rate 18 per minute, O2 saturation 93% on nasal cannula 1 liter per minute. No pallor or central cyanosis. Normal oral moisture. Trachea midline. Neck veins remain significantly elevated approximately 10 cm above the sternal angle. Increased anteroposterior chest diameter with no current inspiratory rales. [place] not palpable. Heart sounds unchanged. Soft, protuberant abdomen. Has obvious pitting edema both lower extremities with up to the level of his mid thigh posteriorly as well as over his sacrum. 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 Has occasional isolated PVCs and has had several nonsustained runs of what somewhat slow monomorphic ventricular tachycardia (up to 67 beats with rate 140 bpm). Paced rhythm disturbances have been asymptomatic. LABORATORY DATA: Blood work today shows a hemoglobin of 12. White blood cell count of 13,000. PT/INR was 21.6/1.8 despite considerable potassium replacement yesterday. His potassium this morning was only 3.3. Was given additional by mouth and IV potassium by the hospitalist and follow up potassium at three this afternoon was up to 3.7. Serum magnesium was normal at 2.0. Other electrolytes were also in balance. BUN remains elevated at 101 and potassium remains elevated but stable at 2.2. Fasting glucose was 80 this morning. IMPRESSION/PLAN: 1. Nonsustained ventricular tachycardia: Asymptomatic and somewhat slow, likely related to his underlying heart disease and electrolyte disturbance. Has received considerable KCl replacement by mouth and IV, showing improvement this afternoon. We had a discussion today and the patient has an out hospital DNR. I have requested the nurses to obtain a copy of this for our hospital record. 2. Hypokalemia / metabolic alkalosis: This appears to be gradually improving with replacement therapy. Has received both by mouth and IV replacement earlier today. His diuretics remain on hold. 3. Heart failure (diastolic / chronic): As mentioned, he is at his functional dry weight. Has good air entry over both lung peters with no current inspiratory rales despite his gross ongoing right heart failure. I am somewhat confused by blood pressure recordings on this gentleman with the automatic sphygmomanometer as my manual blood pressures have been considerably lower. He is now off Zebeta beta luis therapy and diuretic is on hold. There was obviously considerable error weighing this gentleman today; weight was recorded as 61.7 kg!! (His weight August 21 was 134kg). 4. Cor pulmonale / right heart failure. This is his most serious problem and anticipated limitation of his life expectancy. His prognosis is measured in months. Despite my request to monitor and record his O2 saturation, at rest and with ambulation, this was not performed. I have placed an order for the respiratory service to do this instead of the nursing staff. 5. Chronic atrial fibrillation: Clearly has degenerative conduction tissue disease and abnormal AV betsy function with a controlled ventricular response off negative chronotropic therapy. On his oral anticoagulation has remained free of any symptom or sign of embolic phenomenon or bleeding. Hemoglobin is stable as mentioned. 6. Coronary artery disease ([place] vessel): On his current level of activity has remained free of symptomatic myocardial ischemia. Currently on statin therapy and anticoagulation alone. 7. Hypertensive heart disease (benign with heart failure). Soft blood pressures as mentioned above, diuretic therapy on hold. Continues to have considerable prerenal azotemia related to his impaired renal perfusion with his severe pulmonary hypertension and low cardiac output. Should his electrolyte imbalance be resolved by tomorrow, I would recommend a home safety evaluation and possible discharge home. SABAS
[2017-08-26] MEDS: PRAVASTATIN 20 MG TAB PO SCH (20:50)
[2017-08-26] MEDS: zolPIDEM TARTRATE 5 MG TAB PO SCH (20:50)
[2017-08-26] MEDS: ASPIRIN 81 MG ENTERIC TAB PO SCH (20:51)
[2017-08-26] MEDS: GABAPENTIN 300 MG CAP PO SCH (20:51)
[2017-08-27 02:00] VITALS: BP 129/69
[2017-08-27 06:00] VITALS: BP 107/54
[2017-08-27] MEDS: CALCITRIOL 0.25 MCG CAP (S0169) PO SCH (07:56)
[2017-08-27] MEDS: POTASSIUM CHLORIDE 10 MEQ SR TABLET PO SCH (07:56)
[2017-08-27] MEDS: SENOKOT S TAB PO SCH ×2 (07:56→21:00)
[2017-08-27] MEDS: SODIUM CHLORIDE NASAL 0.65% SPRAY BTL (OCEAN) SCH ×2 (07:57→21:09)
[2017-08-27 07:59] LABS: MEAN CORPUSCULAR HEMOGLOBIN 24.4 pg (27.0-33.0); MEAN CORPUSCULAR HGB CONC 30.1 g/dl (32.0-36.5); MEAN CORPUSCULAR VOLUME 81.1 fl (80.0-96.0); PLATELET COUNT, AUTOMATED 202 10^3/uL (150-450); WHITE BLOOD COUNT 11.6 10^3/uL (4.0-10.0)
[2017-08-27 08:10] LABS: INR 1.8
[2017-08-27 08:26] LABS: CALCIUM LEVEL 9.1 MG/DL (8.8-10.2); GLOMERULAR FILTRATION RATE 34.9 (>42); POTASSIUM SERUM 3.9 MEQ/L (3.5-5.1)
[2017-08-27 10:00] VITALS: BP 115/67
[2017-08-27 14:00] VITALS: BP 118/76
--- NOTE | 2017-08-27 14:10 | IPNPDOC ---
Text Note Date of Service The patient was seen on 08/27/17. NOTE SUBJECTIVE: Patient is seen in the room today. Patient has acute oxygen desaturation during ambulation in room air. He has been on O2 supplement since admission. He does not use oxygen at home. OBJECTIVE: VITAL SIGNS: Listed below. GENERAL: No sign of acute distress. Alert and oriented times three. HEENT: Normocephalic, atraumatic. CARDIOVASCULAR: Irregularly irregular. Positive S1, S2. Positive systolic murmur. LUNGS: Positive crackles in the lung bilateral base. No wheezes. ABDOMEN: Soft, nontender, nondistended, morbidly obese. EXTREMITIES: 1+ edema in lower extremities. Positive venous stasis skin changes. There is also oozing of the lower extremity most significant right anterior arias cover with a foam dressing. There is fluid noted on the dressing. LABORATORY DATA: Listed below. ASSESSMENT AND PLAN: 1. Systolic congestive heart failure exacerbation. Ejection fraction (EF) is 35%. Cardiology has been assisting on the case. Appreciate his input. Patient is currently on fluid restriction. Continue volume input and output and daily weight. Lasix is discontinued. - Patient has acute oxygen desaturation during physical therapy section. Will continue to titrate oxygen as tolerated. If patient continue requiring oxygen during ambulation, will consider discharge patient with short term portable oxygen. - 2. Tachycardia. Cardiology has been assisting on the case. Patient has severe hypokalemia. Continue to supplement through IV and PO. Lasix was discontinued. 3. Right lower extremity venous stasis ulcers. The case was discussed with Dr. Greco previously. Wound care is also consulted. Patient currently using Vashe and Optifoam dressing for the drainage. Patient is also recommended to continue leg elevation. 4. Atrial fibrillation. On Zebeta. Patient has anticoagulation with Coumadin. Continue to adjust warfarin dosage as needed. Continue to follow with INR. 5. Acute on chronic kidney injury. Patient has been receiving diuresis previously. Renal function is improving. Continue to monitor. 6. Hypokalemia. Most likely secondary to diuretic use. Patient will receive potassium supplement. 6. Dyslipidemia. On pravastatin. 7. Hypertension. Blood pressure in the satisfactory range. Patient is encouraged to take his Zebeta. 8. Peripheral neuropathy. On Neurontin. 9. Diabetes. Diet controlled. Fasting glucose in the morning has been in the normal range. 10. Deep venous thrombosis (DVT) prophylaxis. Patient is currently on Coumadin for his atrial fibrillation (AFib). VS,Fishbone, I+O VS, Fishbone, I+O Laboratory Tests 08/26/17 14:58 08/27/17 07:40 Red Blood Count 5.12, Mean Corpuscular Volume 81.1, Mean Corpuscular Hemoglobin 24.4 L, Mean Corpuscular Hemoglobin Concent 30.1 L, Red Cell Distribution Width 22.0 H, Calcium Level 9.1 Vital Signs Date Time Temp Pulse Resp B/P (MAP) Pulse Ox O2 Delivery O2 Flow Rate FiO2 08/27/17 10:21 Nasal Cannula 2.0 08/27/17 10:00 97.3 97 18 115/67 (77) 93 I&O- Last 24 Hours up to 6 AM 08/27/17 06:00 Intake Total 840 ml Output Total 650 ml Balance 190 ml MARY BECKER DO Aug 27, 2017 14:10
[2017-08-27] MEDS ORDERED: WARFARIN SOD 5 MG TAB PO ONE (17:00)
[2017-08-27 18:00] VITALS: BP 123/63
[2017-08-27] MEDS ORDERED: POTASSIUM CHLORIDE 10 MEQ SR TABLET PO ONE (18:45)
--- NOTE | 2017-08-27 20:25 | IPN ---
CARDIOLOGY PROGRESS NOTE: 08/27/2017 SUBJECTIVE: Patient has been up ambulating short distances in his room without chest discomfort or dizziness. Continues to be quite dyspneic with minimal activity. Remains unaware of his heart action. He is very keen to be discharged home at this time. OBJECTIVE: Obese, barrel-chested elderly male currently sitting on the edge of the bed comfortably. Heart rate 94 bpm and irregular, blood pressure 120/64 sitting, respiratory rate 20, O2 saturation 91% on room air. Note is made of his O2 desaturation ambulating short distances. He will need chronic home O2. Neck veins remain markedly elevated. Increased anteroposterior chest diameter with no inspiratory rales. Protuberant, obese abdomen that is soft, obvious very impressive lower extremity and sacral pitting edema. LABORATORY DATA: Blood work today showed a hemoglobin of 12.5 which is stable, white blood cell count is decreased from yesterday at 11.6 thousand. Normal platelet count. His PT / INR is 21.5 / 1.8 on his increased Coumadin therapy. Electrolytes this morning show a potassium finally up to 3.9. Other electrolytes were normal. BUN has decreased to 92, creatinine to 2.0, fasting glucose was 87. IMPRESSION/PLAN: 1. Nonsustained ventricular tachycardia: Has remained free of any symptomatic arrhythmia. Obviously, potassium replacement was a fernandez measure to prevent further malignant arrhythmia. However, with his advanced / end-stage right heart failure his prognosis is guarded. We certainly respect his wish to be DO NOT RESUSCITATE (DNR). We have emphasized the importance of supplemental oxygen by nasal prongs with ambulation to prevent effort related O2 desaturation and further tachyarrhythmia. The patient appears to understand and he is agreeable. 2. Hypokalemia: Fortunately, this problem has finally improved with impressive potassium replacement therapy. I anticipate it will be safe for us to resume a lower dose of his torsemide i.e. 40 mg daily tomorrow along with his potassium chloride 40 mEq daily. I have also started him on low-dose spirolactone 12.5 mg daily. We will arrange for him to have followup renal profile the day prior to his office followup appointment with us in 7 to 10 days. 3. Heart failure (diastolic / chronic): From the left ventricular standpoint, he appears to be compensated off diuretic therapy for the time being because of his relative hypotension and azotemia (severe right heart failure being the limitation to further diuresis). Hopefully tomorrow morning, we will be able to resume his torsemide 40 mg daily with low-dose spironolactone and potassium chloride 40 mEq daily. We have emphasized the crucial importance of modest salt and fluid intake restriction. 4. Cor pulmonale / right heart failure: Demonstrated O2 desaturation with even minimal activity clearly justifies chronic home O2. Recognizing the chief cause of his severe pulmonary hypertension has been his obesity and obstructive sleep apnea. The patient appears more willing today to be referred back to pulmonary medicine for pressure therapy. Weight loss and his C-PAP will clearly improve his quality and length of life. 5. Chronic atrial fibrillation: Controlled ventricular response off negative chronotropic therapy. I would not send him home on his Zebeta. Remains on oral anticoagulation, which has been adjusted by the hospitalist service. I believe his dosage on discharge should be 2.5 mg daily except for 5 mg Mondays, Wednesdays and Fridays. His primary physician, Dr. Martin will determine who is currently managing his Coumadin but our service would be pleased to monitor this and would plan a followup PT / INR the day prior to his followup appointment with us in 7-10 days. 6. Coronary disease ([place] vessel): Remains free of symptomatic myocardial ischemia. Currently on statin and anticoagulation therapy alone. Not a candidate for beta luis or ROSA MARIA inhibitor. 7. Hypertensive heart disease (benign with heart failure): Current blood pressure has improved holding his diuretic therapy and stopping his Zebeta. I suspect his right sided filling pressure has increased accounting for improved right ventricular output and supply to his left ventricle with improved left ventricular cardiac output and renal perfusion. Plan is to resume torsemide with low-dose spirolactone tomorrow. The patient is aware of his limited prognosis and appears to be more receptive to following dietary restrictions, chronic home O2 therapy and pulmonary service reevaluation for C-PAP therapy. Cardiac medications should include: Torsemide 20 mEq tablets 2 tablets daily, potassium chloride 20 mEq tablets 2 tablets daily, spironolactone 25 mg tablets 1/2 tablet daily, Coumadin 2.5 mg daily except for 5 mg Mondays, Wednesdays and Fridays, pravastatin 80 mg at bedtime and aspirin 81 mg daily. Recommended a followup clinic visit / CHF check in our office in 7-10 days time with some blood draw for PT / INR and renal profile the day prior to his visit. I have discussed this with Dr. Martin this evening. The patient has indicated his wish to have his and daughter come to his appointment to learn more about his guarded prognosis and advanced cardiopulmonary condition. We would encourage him to contact us should he have problems at home.
[2017-08-27] MEDS: ASPIRIN 81 MG ENTERIC TAB PO SCH (21:00)
[2017-08-27] MEDS: GABAPENTIN 300 MG CAP PO SCH (21:08)
[2017-08-27] MEDS: zolPIDEM TARTRATE 5 MG TAB PO SCH (21:08)
[2017-08-27] MEDS: PRAVASTATIN 20 MG TAB PO SCH (21:09)
[2017-08-27 22:00] VITALS: BP 130/83
[2017-08-28 02:00] VITALS: BP 118/56
[2017-08-28 06:00] VITALS: BP 105/56
[2017-08-28 06:42] LABS: MEAN CORPUSCULAR HEMOGLOBIN 24.4 pg (27.0-33.0); MEAN CORPUSCULAR HGB CONC 29.7 g/dl (32.0-36.5); MEAN CORPUSCULAR VOLUME 82.3 fl (80.0-96.0); PLATELET COUNT, AUTOMATED 207 10^3/uL (150-450); RED CELL DISTRIBUTION WIDTH 22.2 % (11.5-14.5); WHITE BLOOD COUNT 12.2 10^3/uL (4.0-10.0)
[2017-08-28 06:53] LABS: INR 2.14
[2017-08-28 06:58] LABS: CALCIUM LEVEL 9.1 MG/DL (8.8-10.2); CREATININE FOR GFR 1.84 MG/DL (0.70-1.30); GLOMERULAR FILTRATION RATE 38.5 (>42); POTASSIUM SERUM 4.2 MEQ/L (3.5-5.1)
[2017-08-28] MEDS: SENOKOT S TAB PO SCH (08:27)
[2017-08-28] MEDS: POTASSIUM CHLORIDE 10 MEQ SR TABLET PO SCH (08:27)
[2017-08-28] MEDS: CALCITRIOL 0.25 MCG CAP (S0169) PO SCH (08:27)
[2017-08-28] MEDS: SODIUM CHLORIDE NASAL 0.65% SPRAY BTL (OCEAN) SCH (08:28)
[2017-08-28] MEDS ORDERED: TORSEMIDE 20 MG TAB PO SCH (09:00)
[2017-08-28] MEDS ORDERED: SPIRONOLACTONE 12.5MG PER 1/2 TABLET PO SCH (09:00)
[2017-08-28 10:00] VITALS: BP 111/66
[2017-08-28] MEDS ORDERED: WARF-18 PO (10:25)
[2017-08-28] MEDS ORDERED: DEMA20TA6 PO (10:25)
[2017-08-28] MEDS ORDERED: POTA10CA PO (10:25)
[2017-08-28] MEDS ORDERED: ALDA25TA2 PO (10:25)
[2017-08-28 14:00] VITALS: BP 103/51
--- NOTE | 2017-08-28 23:03 | DSES ---
DATE OF ADMISSION: 08/20/2017 DATE OF DISCHARGE: CONSULTANTS: Technology Sales Representative. PRIMARY CARE PROVIDER: Dr. Grant PROCEDURES: None. DISCHARGE DIAGNOSES: 1. Diastolic heart failure exacerbation. 2. Atrial fibrillation. 3. Acute on chronic kidney injury. 4. Nonsustained ventricular tachycardia. 5. Cor pulmonale. 6. Coronary artery disease. 7. Hypertensive heart disease. 8. Right lower extremity venous stasis ulcers. 9. Hypokalemia. 10. Hypertension. 11. Peripheral neuropathy. 12. Diabetes. 13. Obstructive sleep apnea (PETRA), intolerable to continuous positive airway pressure (CPAP). HOSPITALIZATION COURSE: The patient is a 72-year-old male who presented to [facility] on 08/20/2017, for worsening of bilateral lower extremity swelling. Patient is admitted for heart failure exacerbation. Technology Sales Representative consulted. A 2D echo is also consulted. For the right lower extremity venous stasis ulcer, auditing specialist Dr. Greco is contacted and recommended through the communications. With IV diuretic, patient's respiratory status is improving. Patient's lower extremity swelling also shows gradual improvement. Later, patient was noted to have nonsustained ventricular tachycardia on telemetry, therefore the diuretic was placed on hold. Fortunately, at the time of the incident, patient's fluid balance is approaching his baseline. Patient's medication continued to be adjusted. Patient continued to work with physical therapy and it was noted patient has good oxygen saturation at rest, however during any type of exertion, patient has acute desaturation of oxygenation. On 08/28/2017, patient is determined to be medically stable for discharge, with recommendation to strictly follow the fluid restriction as instructed, patient should never skip his medications, and patient should establish and followup with pulmonology for his CPAP. Patient is instructed to followup with auditing specialist for his venous stasis ulcers. Patient should have close followup with primary care provider and cardiology. OBJECTIVE: VITAL SIGNS: On the day of discharge: Temperature 98.2, pulse 92, respirations 21, blood pressure 111/66, pulse oximetry 97% with 4 liters nasal cannula. LABORATORY DATA: WBC 12.2, hemoglobin 13, hematocrit 43.8, platelet count 207, sodium 141, potassium 4.2, chloride 107, carbon dioxide 25, BUN 84, creatinine 1.84, GFR 38.5, fasting glucose 83, calcium 9.1, PT is 24.7, INR is 2.14. Blood cultures from 08/20/2017, is negative after 5 days. IMAGING STUDIES: Chest x-ray on 08/20/2017, shows congestive heart failure (CHF). CT of the chest without contrast on 08/20/2017, shows cardiomegaly, CHF, right pleural effusion, sequelae of previous granulomatous disease, evidence of pulmonary fibrosis, mild scattered emphysema. Renal ultrasound on 08/21/2017, shows negative renal ultrasound, multiple left renal cysts. DISCHARGE MEDICATIONS: - potassium chloride 40 mEq by mouth daily for 7 days - spironolactone 12.5 mg by mouth every morning - torsemide 40 mg by mouth daily - warfarin 2.5 mg by mouth nightly on Thursday, , Thursday, and Thursday - warfarin 5 mg by mouth on Thursday, Thursday, and Thursday - allopurinol 400 mg by mouth daily - aspirin 81 mg by mouth nightly - calcitriol 0.25 mcg by mouth daily - carvedilol 12.5 mg by mouth twice a day - Flonase 100 mcg by mouth daily as needed - gabapentin 300 mg by mouth nightly - pravastatin 80 mg by mouth nightly - Ambien 10 mg by mouth nightly DISCHARGE INSTRUCTIONS: Discontinue lines. Discharge home. Ambulate with a walker. Patient will use portable oxygen for any type of exertion. Patient should follow with 1.5 liters fluid restriction, measure daily weight. No salt diet as tolerated. Patient should followup with primary care provider Dr. Grant in 1-2 weeks. Patient should followup with Dr. Monet in 7-10 days. Patient should get laboratory tests, including CBC, renal profile, and PT/INR prior to Dr. Monet' office visit. Patient is recommended to followup with Dr. Greco for the chronic venous stasis wound care. DISCHARGE TIME: Greater than 30 minutes. DISCHARGE CONDITION: Fair.
--- NOTE | 2017-08-29 01:16 | ECGEPIP ---
Stationary ECG Study [facility] Test Date: 2017-08-28 Pat Name: CHAVEZ BURCH Department: Room: R2015-11 Gender: M Shipping Specialist: MARIEL : 1945 Requested By: Justin Monet Order Number: [id number] Reading MD: Basilio Flanagan Measurements Intervals [place] Rate: 94 P: [place]: 0 QRS: 155 QRSD: 122 T: -1 QT: 372 QTc: 466 Interpretive Statements ATRIAL FIBRILLATION WITH ABERRANT CONDUCTION OR VENTRICULAR PREMATURE COMPLEXES Incomplete Right bundle branch block POSSIBLE ANTERIOR MYOCARDIAL INFARCTION, PROBABLY OLD POSSIBLE INFERIOR MYOCARDIAL INFARCTION, PROBABLY OLD Similar to tracing done 08-20-2017 Electronically Signed On 08-29-2017 1:16:12 EST by Basilio Flanagan
== END 2017-08-28 16:04 | disposition home health service (06) | DRG 291 ==
LOC: M ED 17:58 → M ED INP 21:56 → M MSPAV 08-21 16:02
PROVIDERS: ADMIT Hospitalist; ATTEND Internal Medicine
DX: I13.0 Hypertensive heart and chronic kidney disease with heart failure and stage 1 through stage 4 chronic kidney disease, or unspecified chronic kidney disease (principal); I50.33 Acute on chronic diastolic (congestive) heart failure; N18.4 Chronic kidney disease, stage 4 (severe); L97.919 Non-pressure chronic ulcer of unspecified part of right lower leg with unspecified severity; E87.3 Alkalosis; I48.2 Chronic atrial fibrillation; E11.22 Type 2 diabetes mellitus with diabetic chronic kidney disease; I87.2 Venous insufficiency (chronic) (peripheral); E78.5 Hyperlipidemia, unspecified; Z66 Do not resuscitate; E11.42 Type 2 diabetes mellitus with diabetic polyneuropathy; I25.10 Atherosclerotic heart disease of native coronary artery without angina pectoris; D50.9 Iron deficiency anemia, unspecified; G47.33 Obstructive sleep apnea (adult) (pediatric); I27.29 Other secondary pulmonary hypertension; E66.9 Obesity, unspecified; I25.2 Old myocardial infarction; E87.6 Hypokalemia; I70.0 Atherosclerosis of aorta; Z79.01 Long term (current) use of anticoagulants; Z79.82 Long term (current) use of aspirin; Z79.899 Other long term (current) drug therapy; Z87.891 Personal history of nicotine dependence; Z85.46 Personal history of malignant neoplasm of prostate; Z68.38 Body mass index [BMI] 38.0-38.9, adult

== ENCOUNTER → 2017-10-21 | Outpatient (CLI) | payer MEDICARE | LOC: M SLEEP 19:43 | DX: R09.02 Hypoxemia (principal) | CPT/HCPCS: 95811 ==

== ENCOUNTER → 2017-10-22 | Outpatient (REF) | payer MEDICARE | LOC: M SFHCCAPE 13:46 | DX: L02.219 Cutaneous abscess of trunk, unspecified (principal); L03.319 Cellulitis of trunk, unspecified | CPT/HCPCS: 87076 ==

== ENCOUNTER 2017-10-25 13:41 | Emergency (ER) | payer MEDICARE ==
[2017-10-25 14:46] LABS: BASO # 0.1 10^3/uL (0.0-0.2); BASO % 0.5 % (0.0-1.0); EOS # 0.1 10^3/uL (0.0-0.50); EOS % 0.9 % (0.0-3.0); HEMOGLOBIN 12.9 g/dl (14.0-18.0); IMMATURE GRANULOCYTE % 0.6 % (0-3.0); LYMPH # 0.8 10^3/uL (1.5-4.5); MEAN CORPUSCULAR VOLUME 83.2 fl (80.0-96.0); MONO # 0.7 10^3/uL (0.0-0.8); MONO % 6.3 % (0.0-5.0); NEUTROPHILS # 9.1 10^3/uL (1.8-7.7); NEUTROPHILS % 84.7 % (36.0-66.0); PLATELET COUNT, AUTOMATED 200 10^3/uL (150-450); RED BLOOD COUNT 5.17 10^6/uL (4.30-6.10); RED CELL DISTRIBUTION WIDTH 22.3 % (11.5-14.5); WHITE BLOOD COUNT 10.8 10^3/uL (4.0-10.0)
[2017-10-25 14:50] LABS: INR 1.91; PROTHROMBIN TIME 22.5 SECONDS (12.4-14.5)
[2017-10-25 14:51] LABS: PARTIAL THROMBOPLASTIN TIME 33.3 SECONDS (26.8-37.9)
[2017-10-25 15:02] LABS: NT-PRO BNP 5432 PG/ML (<125)
[2017-10-25 15:03] LABS: ALBUMIN 3.5 GM/DL (3.2-5.2); ALBUMIN/GLOBULIN RATIO 0.92 (1.00-1.93); ALKALINE PHOSPHATASE 113 U/L (45-117); ALT/SGPT 15 U/L (12-78); ANION GAP 12 MEQ/L (8-16); AST/SGOT 12 U/L (7-37); BILIRUBIN,DIRECT 0.7 MG/DL (0.0-0.2); BILIRUBIN,TOTAL 1.2 MG/DL (0.2-1.0); BLOOD UREA NITROGEN 71 MG/DL (7-18); CALCIUM LEVEL 8.5 MG/DL (8.8-10.2); CARBON DIOXIDE LEVEL 26 MEQ/L (21-32); CHLORIDE LEVEL 104 MEQ/L (98-107); CPK CREATINE PHOSPHOKINASE 37 U/L (39-308); FREE T4 1.36 NG/DL (0.76-1.46); GLUCOSE, FASTING 97 MG/DL (70-100); POTASSIUM SERUM 3.9 MEQ/L (3.5-5.1); SODIUM LEVEL 142 MEQ/L (136-145); TOTAL PROTEIN 7.3 GM/DL (6.4-8.2); TROPONIN I 0.02 NG/ML (< 0.10)
[2017-10-25 15:09] LABS: CK-MB VALUE MASS 2.1 NG/ML (0.0-3.6); MB/CK RELATIVE INDEX 5.67 (< OR =4)
[2017-10-25] MEDS: ONDANSETRON 4MG/2ML VIAL (J2405) IV (17:16)
[2017-10-25 20:54] LABS: CK-MB VALUE MASS 2.1 NG/ML (0.0-3.6); CPK CREATINE PHOSPHOKINASE 108 U/L (39-308); MB/CK RELATIVE INDEX 1.94 (< OR =4); TROPONIN I 0.02 NG/ML (< 0.10)
== END 2017-10-25 22:20 | disposition home or self-care (01) ==
LOC: M ED 13:41
DX: I48.91 Unspecified atrial fibrillation (principal); I50.9 Heart failure, unspecified; E11.9 Type 2 diabetes mellitus without complications; I10 Essential (primary) hypertension; E78.5 Hyperlipidemia, unspecified; N18.9 Chronic kidney disease, unspecified; I51.7 Cardiomegaly; K76.89 Other specified diseases of liver; Z79.82 Long term (current) use of aspirin; Z79.01 Long term (current) use of anticoagulants; Z79.899 Other long term (current) drug therapy
CPT/HCPCS: J2405

== ENCOUNTER 2017-10-29 13:15 | Inpatient (IN) | payer MEDICARE ==
[2017-10-29 15:26] LABS: BASO % 0.1 % (0.0-1.0); EOS % 0.1 % (0.0-3.0); HEMATOCRIT 39.6 % (42.0-52.0); IMMATURE GRANULOCYTE % 0.9 % (0-3.0); LYMPH # 0.7 10^3/uL (1.5-4.5); LYMPH % 4.5 % (24.0-44.0); MEAN CORPUSCULAR HEMOGLOBIN 25.4 pg (27.0-33.0); MEAN CORPUSCULAR HGB CONC 30.3 g/dl (32.0-36.5); MEAN CORPUSCULAR VOLUME 83.9 fl (80.0-96.0); MONO # 0.8 10^3/uL (0.0-0.8); MONO % 5.6 % (0.0-5.0); NEUTROPHILS # 13.1 10^3/uL (1.8-7.7); NEUTROPHILS % 88.8 % (36.0-66.0); PLATELET COUNT, AUTOMATED 197 10^3/uL (150-450); RED BLOOD COUNT 4.72 10^6/uL (4.30-6.10); RED CELL DISTRIBUTION WIDTH 21.2 % (11.5-14.5); WHITE BLOOD COUNT 14.8 10^3/uL (4.0-10.0)
[2017-10-29 15:43] LABS: ANION GAP 8 MEQ/L (8-16); BLOOD UREA NITROGEN 87 MG/DL (7-18); CALCIUM LEVEL 8.2 MG/DL (8.8-10.2); CARBON DIOXIDE LEVEL 26 MEQ/L (21-32); CHLORIDE LEVEL 104 MEQ/L (98-107); CREATININE FOR GFR 2.37 MG/DL (0.70-1.30); GLOMERULAR FILTRATION RATE 28.7 (>42); GLUCOSE, FASTING 85 MG/DL (70-100); POTASSIUM SERUM 4.5 MEQ/L (3.5-5.1); SODIUM LEVEL 138 MEQ/L (136-145)
[2017-10-29 15:47] LABS: CPK CREATINE PHOSPHOKINASE 37 U/L (39-308); TROPONIN I < 0.02 NG/ML (< 0.10)
[2017-10-29 15:53] LABS: CK-MB VALUE MASS 1.3 NG/ML (0.0-3.6); MB/CK RELATIVE INDEX 3.51 (< OR =4); NT-PRO BNP 10146 PG/ML (<125)
[2017-10-29] MEDS: FUROSEMIDE 100 MG/10 ML VIAL (J1940) IV (16:24)
[2017-10-29] MEDS ORDERED: ONDANSETRON 4MG/2ML VIAL (J2405) IV (17:15)
[2017-10-29 20:44] LABS: INR 1.86
[2017-10-29] MEDS: PRAVASTATIN 20 MG TAB PO (23:03)
[2017-10-29] MEDS: GABAPENTIN 300 MG CAP PO (23:03)
[2017-10-29] MEDS: ASPIRIN 81 MG ENTERIC TAB PO (23:04)
[2017-10-29] MEDS: CARVedilol 12.5 MG TAB PO (23:08)
[2017-10-29] MEDS: ACETAMINOPHEN TAB 650MG DOSE (2X325MG) PO (23:09)
[2017-10-30 01:43] LABS: ANION GAP 10 MEQ/L (8-16); BLOOD UREA NITROGEN 94 MG/DL (7-18); CALCIUM LEVEL 8.5 MG/DL (8.8-10.2); CARBON DIOXIDE LEVEL 25 MEQ/L (21-32); CHLORIDE LEVEL 105 MEQ/L (98-107); CREATININE FOR GFR 2.22 MG/DL (0.70-1.30); GLUCOSE, FASTING 90 MG/DL (70-100); MAGNESIUM LEVEL 2.3 MG/DL (1.8-2.4); POTASSIUM SERUM 3.9 MEQ/L (3.5-5.1); SODIUM LEVEL 140 MEQ/L (136-145); TROPONIN I < 0.02 NG/ML (< 0.10)
[2017-10-30] MEDS: ACETAMINOPHEN TAB 650MG DOSE (2X325MG) PO ×2 (04:08→18:37)
[2017-10-30 06:38] LABS: HEMATOCRIT 37.1 % (42.0-52.0); HEMOGLOBIN 11.2 g/dl (14.0-18.0); MEAN CORPUSCULAR HEMOGLOBIN 24.8 pg (27.0-33.0); MEAN CORPUSCULAR HGB CONC 30.2 g/dl (32.0-36.5); MEAN CORPUSCULAR VOLUME 82.1 fl (80.0-96.0); PLATELET COUNT, AUTOMATED 213 10^3/uL (150-450); RED BLOOD COUNT 4.52 10^6/uL (4.30-6.10); WHITE BLOOD COUNT 13.8 10^3/uL (4.0-10.0)
[2017-10-30 06:43] LABS: INR 1.97; PROTHROMBIN TIME 23.1 SECONDS (12.4-14.5)
[2017-10-30 06:46] LABS: ALBUMIN 2.5 GM/DL (3.2-5.2); ALBUMIN/GLOBULIN RATIO 0.57 (1.00-1.93); ALKALINE PHOSPHATASE 105 U/L (45-117); ALT/SGPT 15 U/L (12-78); ANION GAP 12 MEQ/L (8-16); AST/SGOT 15 U/L (7-37); BILIRUBIN,TOTAL 1.4 MG/DL (0.2-1.0); BLOOD UREA NITROGEN 88 MG/DL (7-18); CALCIUM LEVEL 8.5 MG/DL (8.8-10.2); CARBON DIOXIDE LEVEL 22 MEQ/L (21-32); CHLORIDE LEVEL 106 MEQ/L (98-107); CREATININE FOR GFR 2.07 MG/DL (0.70-1.30); GLOMERULAR FILTRATION RATE 33.6 (>42); GLUCOSE, FASTING 71 MG/DL (70-100); MAGNESIUM LEVEL 2.2 MG/DL (1.8-2.4); POTASSIUM SERUM 3.8 MEQ/L (3.5-5.1); SODIUM LEVEL 140 MEQ/L (136-145); TOTAL PROTEIN 6.9 GM/DL (6.4-8.2)
[2017-10-30] MEDS: POTASSIUM CHLORIDE 10 MEQ SR TABLET PO (08:52)
[2017-10-30] MEDS: CALCITRIOL 0.25 MCG CAP (S0169) PO (08:52)
[2017-10-30] MEDS: FUROSEMIDE 40 MG/4 ML VIAL (J1940) IV (08:53)
[2017-10-30] MEDS: CARVedilol 12.5 MG TAB PO ×2 (09:00→21:06)
[2017-10-30] MEDS ORDERED: SALIVA SUBSTITUTE(MOUTHKOTE) BTL MT (11:30)
[2017-10-30] MEDS: WARFARIN SOD 2 MG TAB PO (18:38)
[2017-10-30] MEDS: PRAVASTATIN 20 MG TAB PO (21:05)
[2017-10-30] MEDS: GABAPENTIN 300 MG CAP PO (21:06)
[2017-10-30] MEDS: ASPIRIN 81 MG ENTERIC TAB PO (21:06)
[2017-10-31] MEDS: ACETAMINOPHEN TAB 650MG DOSE (2X325MG) PO ×2 (04:24→09:06)
[2017-10-31] MEDS: CALCITRIOL 0.25 MCG CAP (S0169) PO (09:00)
[2017-10-31] MEDS: TORSEMIDE 20 MG TAB PO (09:01)
[2017-10-31] MEDS: CARVedilol 12.5 MG TAB PO (09:01)
== END 2017-10-31 15:20 | disposition hospice, home (50) | DRG 291 ==
LOC: M ED 13:15 → M ED INP 17:07 → M PCU 21:05
DX: I13.0 Hypertensive heart and chronic kidney disease with heart failure and stage 1 through stage 4 chronic kidney disease, or unspecified chronic kidney disease (principal); I50.33 Acute on chronic diastolic (congestive) heart failure; N18.4 Chronic kidney disease, stage 4 (severe); I48.91 Unspecified atrial fibrillation; I25.10 Atherosclerotic heart disease of native coronary artery without angina pectoris; E66.01 Morbid (severe) obesity due to excess calories; I27.81 Cor pulmonale (chronic); I87.2 Venous insufficiency (chronic) (peripheral); E11.22 Type 2 diabetes mellitus with diabetic chronic kidney disease; Z66 Do not resuscitate; I50.84 End stage heart failure; G47.33 Obstructive sleep apnea (adult) (pediatric); Z79.82 Long term (current) use of aspirin; Z79.01 Long term (current) use of anticoagulants; Z79.899 Other long term (current) drug therapy; Z87.891 Personal history of nicotine dependence